=== PATIENT | male | born 1950 | race Caucasian/White ===

== ENCOUNTER 2018-09-25 16:49 | Inpatient (IN) | payer MEDICARE ==
[2018-09-25] MEDS ORDERED: ASPIRIN 81 MG PO STA (17:11)
[2018-09-25] MEDS ORDERED: HEPARIN SOD,PORK IN 0.45% NACL 25,000 UNIT in 0.45% NACL 1 250ML.BAG IV SCH (17:15)
[2018-09-25] MEDS ORDERED: HEPARIN SODIUM,PORCINE 5,000 UNIT/ML 1 ML VIAL IV ONE (17:15)
[2018-09-25] MEDS ORDERED: HEPARIN SODIUM,PORCINE 5,000 UNIT/ML 1 ML VIAL IV PRN (17:15)
--- NOTE | 2018-09-25 17:17 | ED ---
General Adult HPI - General Chief complaint: Chest Pain Stated complaint: chest & back pain Time Seen by Provider: 09/25/18 16:59 Source: patient Mode of arrival: ambulatory - History of Present Illness Initial comments: Dictation was produced using [employer] dictation software. please excuse any grammatical, word or spelling errors. Chief Complaint: 60-year-old male with past medical history of hypertension, asthma and pneumonia presents with chief complaint of chest pain History of Present Illness: 68-year-old male with past nuchal history asthma, hypertension pneumonia presents with chief complaint of chest pain. He states that it started 11:30 this morning. He describes it as a crushing chest pain that radiates to his back and down his left upper extremity. He describes it as a dull ache denies any paresthesias to the arms or legs. Patient states pain is discomfort. He had a similar episode a month ago however it resolved spontan eously. Patient currently undergoing treatment for pneumonia. Patient denies any cardiac history. The ROS documented in this emergency department record has been reviewed and confirmed by me. Those systems with pertinent positive or negative responses have been documented in the HPI. All other systems are other negative and/or noncontributory. PHYSICAL EXAM: General Impression: Alert and oriented x3, mild distress secondary to pain HEENT: Normocephalic atraumatic, extra-ocular movements intact, pupils equal and reactive to light bilaterally, mucous membranes moist. Cardiovascular: Heart regular rate and rhythm, S1&S2 audible, no murmurs, rubs or gallops Chest: Lungs clear to auscultation bilaterally, no rhonchi, no wheeze, no rales Abdomen: Bowel sounds present, abdomen soft, non-tender, non-distended, no organomegaly Musculoskeletal: Pulses present and equal in all extremities, no peripheral edema Motor: no focal deficits noted Neurological: CN II-XII grossly intact, no focal motor or sensory deficits noted Skin: Intact with no visualized rashes Psych: Normal affect and mood ED course: 68-year-old male with chief complaint of chest pain. All signs upon arrival shows blood pressure 202/122. Patient's HPI is concerning for ACS symptoms. More history was obtained from patient. He states earlier today he had episode of nausea and diaphoresis along with this chest pain. Patient's clinical symptoms concerning for myocardial infarction. EKG shows subtle ST elevations in the inferior leads. Chip Tester was activated. Patient was given aspirin and heparin bolus. Patient case was discussed with Dr. Cifuenets to be dispositioned to laborer adjustable steel joist. Pending labs. EKG is reviewed by myself. Showing no acute processes. EKG interpretation: Ventricular rate 65, normal sinus rhythm,. Interval 170, QS 140, QTc 420. No FL prolongation, no QTC prolongation, right bundle branch block pattern. ST elevations in the inferior leads. - Related Data Home Medications Medication Instructions Recorded Confirmed Albuterol Nebulized [Ventolin 2.5 mg INHALATION RT-QID PRN 01/29/14 09/25/18 Nebulized] Losartan Potassium [Cozaar] 100 mg PO DAILY 01/29/14 09/25/18 Montelukast [Singulair] 10 mg PO HS 01/29/14 09/25/18 Fluticasone/Vilanterol [Breo 1 puff INHALATION RT-DAILY 09/25/18 09/25/18 Ellipta 200-25 Mcg INH] Levofloxacin [Levaquin] 500 mg PO DAILY 09/25/18 09/25/18 predniSONE See Taper PO DAILY 09/25/18 09/25/18 Allergies Allergy/AdvReac Type Severity Reaction Status Date / Time yeast Allergy Dyspnea Uncoded 09/25/18 17:43 Review of Systems ROS Statement: Those systems with pertinent positive or pertinent negative responses have been documented in the HPI. ROS Other: All systems not noted in ROS Statement are negative. Past Medical History Past Medical History: Asthma, GERD/Reflux, Hypertension, Pneumonia Additional Past Medical History / Comment(s): KIDNEY STONES, DIVERTICULITIS. History of Any Multi-Drug Resistant Organisms: None Reported Past Surgical History: Appendectomy Past Anesthesia/Blood Transfusion Reactions: No Reported Reaction Past Psychological History: No Psychological Hx Reported Smoking Status: Never smoker Past Alcohol Use History: Rare Past Drug Use History: None Reported - Past Family History Father Family Medical History: Congestive Heart Failure ([place]), Myocardial Infarction ([place]) Additional Family Medical History / Comment(s): AT AGE 7 CHF , HAD GBS AFTER FLU SHOT Mother Family Medical History: Cancer Additional Family Medical History / Comment(s): AT AGE 65 OF [place] Course Vital Signs 09/25/18 09/25/18 09/25/18 16:56 17:20 17:50 Temperature 97.5 F L Pulse Rate 34 L 68 73 Respiratory 16 21 18 Rate Blood Pressure 202/122 188/117 196/106 O2 Sat by Pulse 100 97 100 Oximetry 09/25/18 17:57 Temperature Pulse Rate 69 Respiratory 18 Rate Blood Pressure 197/121 O2 Sat by Pulse 100 Oximetry Medical Decision Making - Lab Data Result diagrams: 09/25/18 17:25 Lab Results 09/25/18 Range/Units 17:25 WBC 18.7 H (3.8-10.6) k/uL RBC 5.46 (4.30-5.90) m/uL Hgb 15.6 (13.0-17.5) gm/dL Hct 45.6 (39.0-53.0) % MCV 83.4 (80.0-100.0) fL MCH 28.5 (25.0-35.0) pg MCHC 34.2 (31.0-37.0) g/dL RDW 14.4 (11.5-15.5) % Plt Count 307 (150-450) k/uL Neutrophils % 83 % Lymphocytes % 6 % Monocytes % 8 % Eosinophils % 1 % Basophils % 0 % Neutrophils # 15.6 H (1.3-7.7) k/uL Lymphocytes # 1.2 (1.0-4.8) k/uL Monocytes # 1.4 H (0-1.0) k/uL Eosinophils # 0.1 (0-0.7) k/uL Basophils # 0.0 (0-0.2) k/uL Disposition Clinical Impression: STEMI (ST elevation myocardial infarction) Disposition: ADMITTED IP TO THIS HOSP Condition: Critical Referrals: None,Stated [Primary Care Provider] - 1-2 days Decision Time: 18:03
[2018-09-25 17:58] LABS: Basophils % (A) 0 %; Eosinophils # (A) 0.1 k/uL (0-0.7); Eosinophils % (A) 1 %; HCT 45.6 % (39.0-53.0); HGB 15.6 gm/dL (13.0-17.5); Lymphocytes # (A) 1.2 k/uL (1.0-4.8); Lymphocytes % (A) 6 %; MCH 28.5 pg (25.0-35.0); MCHC 34.2 g/dL (31.0-37.0); MCV 83.4 fL (80.0-100.0); Monocytes # (A) 1.4 k/uL (0-1.0); Monocytes % (A) 8 %; Neutrophils # (A) 15.6 k/uL (1.3-7.7); Neutrophils % (A) 83 %; Platelet Count 307 k/uL (150-450); RBC 5.46 m/uL (4.30-5.90); RDW 14.4 % (11.5-15.5); WBC 18.7 k/uL (3.8-10.6)
[2018-09-25 18:01] LABS: ALT 33 U/L (21-72); AST 25 U/L (17-59); Alkaline Phosphatase 40 U/L (38-126); Anion Gap 20 mmol/L; Blood Urea Nitrogen 21 mg/dL (9-20); Calcium 7.6 mg/dL (8.4-10.2); Carbon Dioxide 20 mmol/L (22-30); Chloride 108 mmol/L (98-107); Glucose 122 mg/dL (74-99); Magnesium 1.4 mg/dL (1.6-2.3); Potassium 4.1 mmol/L (3.5-5.1); Sodium 148 mmol/L (137-145); Total Bilirubin 0.7 mg/dL (0.2-1.3)
[2018-09-25] MEDS ORDERED: LIDOCAINE 1% INJ 10MG/ML (20 ML MDV) ONE (18:01)
[2018-09-25] MEDS ORDERED: fentaNYL (PF) 50 MCG/ML 2 ML AMP ONE (18:02)
[2018-09-25] MEDS ORDERED: VERAPAMIL 2.5 MG/ML 2 ML AMP ONE (18:02)
[2018-09-25] MEDS ORDERED: NALOXONE 0.4 MG/ML 1 ML VIAL IV PRN (18:04)
--- NOTE | 2018-09-25 18:10 | XR ---
EXAMINATION TYPE: XR chest 1V portable DATE OF EXAM: 09/25/2018 COMPARISON: 09/20/2018 HISTORY: Chest pain TECHNIQUE: Single frontal view of the chest is obtained. FINDINGS: Heart and mediastinum are normal. There is small linear density at the left lung base. The other lung abad are clear. There is no heart failure. IMPRESSION: There is mild atelectasis left lung base that is increased compared to last exam. No hea rt failure.
[2018-09-25 18:12] LABS: Creatine Kinase MB 4.5 ng/mL (0.0-2.4)
[2018-09-25 18:15] LABS: Troponin I 0.115 ng/mL (0.000-0.034)
[2018-09-25] MEDS ORDERED: IV FLUID CONTINUATION 1,000 ML IV ONE (18:19)
[2018-09-25] MEDS ORDERED: fentaNYL (PF) 50 MCG/ML 2 ML AMP IV ONE (18:20)
[2018-09-25] MEDS ORDERED: LIDOCAINE 1% INJ 10MG/ML (20 ML MDV) SQ ONE (18:20)
[2018-09-25 18:21] LABS: D-Dimer <0.17 mg/L FEU (<0.60)
[2018-09-25] MEDS ORDERED: VERAPAMIL SYRINGE (5 MG/10 ML) IV ONE (18:23)
[2018-09-25] MEDS ORDERED: TICAGRELOR 90 MG TAB ONE (18:27)
[2018-09-25] MEDS ORDERED: TICAGRELOR 90 MG TAB PO ONE (18:29)
[2018-09-25] MEDS ORDERED: BIVALIRUDIN BOLUS 250 MG/50 ML IV ONE ×2 (18:29)
[2018-09-25] MEDS ORDERED: BIVALIRUDIN 250 MG in SODIUM CHLORIDE 0.9% 50 ML IV ONE ×2 (18:30→18:46)
[2018-09-25] MEDS ORDERED: IOPAMIDOL-370 125ML BTL INJ ONE (18:54)
[2018-09-25] MEDS ORDERED: ONDANSETRON 4 MG/2 ML VIAL ONE (18:56)
[2018-09-25] MEDS ORDERED: ONDANSETRON 4 MG/2 ML VIAL IVP ONE (18:57)
[2018-09-25] MEDS ORDERED: ATROPINE SULFATE 0.1 MG/ML 10ML SYRINGE IV ONE ×2 (19:03)
[2018-09-25 19:10] LABS: Prothrombin Time >130.0 sec (9.0-12.0)
[2018-09-25 19:11] LABS: INR >10.0 (<1.2); Partial Thromboplastin Time >200.0 sec (22.0-30.0)
[2018-09-25] MEDS ORDERED: niCARdipine Syringe (1,000 mcg/10 mL) INTRACORON ONE (19:27)
[2018-09-25] MEDS ORDERED: IOPAMIDOL-370 100ML BTL INJ ONE ×2 (19:32)
[2018-09-25] MEDS ORDERED: MAG HYDROX/AL HYDROX/SIMETH 30 ML CUP PO PRN (19:53)
[2018-09-25] MEDS ORDERED: NITROGLYCERIN SL TABS 0.4 MG TAB SUBLINGUAL PRN (19:53)
[2018-09-25] MEDS ORDERED: ZOLPIDEM 5 MG TAB PO PRN (19:53)
[2018-09-25] MEDS ORDERED: RX INFO: IV CONTRAST WAS GIVEN 1 EACH MISC MISCELLANE PRN (19:53)
[2018-09-25] MEDS ORDERED: ATROPINE SULFATE 0.1 MG/ML 10ML SYRINGE IV PRN (19:53)
[2018-09-25] MEDS ORDERED: ALBUTEROL NEBULIZED 2.5 MG/3 ML INHALATION PRN (19:54)
[2018-09-25] MEDS ORDERED: SODIUM CHLORIDE 0.9% 1,000 ML IV SCH (20:00)
[2018-09-25 20:08] LABS: Glucose,Whole Blood 160 mg/dL (75-99)
[2018-09-25] MEDS ORDERED: ONDANSETRON 4 MG/2 ML VIAL IVP PRN (21:54)
[2018-09-25] MEDS: ATORVASTATIN 80 MG TAB PO SCH (22:11)
[2018-09-25] MEDS: MONTELUKAST 10 MG TAB PO SCH (22:11)
[2018-09-25] MEDS: TICAGRELOR 90 MG TAB PO SCH (22:12)
--- NOTE | 2018-09-25 23:37 | CONS ---
CONSULTATION Mr. 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 The discomfort occurred are for the first time last week. Subsequently resolved. Early this morning he has some discomfort that has reoccurred. The discomfort radiates to the back. He came into the emergency room and because of that and after further evaluation, Cardiology consultation was initiated. The patient usually is active physically. Has no exertional chest pain. He denies any history of dyspnea on exertion. No dizziness. No palpitation. No syncope. No PND, orthopnea, or peripheral edema. He has no prior history of documented cardiac disease. He follows with Dr. Powers regarding history of bronchial asthma. His coronary risk factors remarkable for hypertension. He is a nonsmoker, nondiabetic. No history of documented hyperlipidemia. MEDICATIONS: Include prednisone, Singulair, losartan 100 mg daily, Breo Ellipta and Ventolin. REVIEW OF SYSTEMS: RESPIRATORY system: He had dyspnea on exertion, history of bronchial asthma. No recent GI bleeding. No peptic ulcer disease. system: No dysuria or hematuria. Nervous system: No stroke or seizure. PHYSICAL EXAMINATION: He is a 68-year-old male, alert, oriented, in no apparent distress. Blood pressure 197/120 with a heart rate in the 60s. HEAD: Normocephalic. Eyes sclerae anicteric. NECK: Good upstroke. No bruit. No jugular venous distention. LUNGS: Clear to auscultation. Heart: Regular rate and rhythm S1, S2. No S3. No rub or gallop appreciated. ABDOMEN: Soft, nontender. Positive bowel sounds. No megaly. EXTREMITIES: No edema. Intact distal pulses. LABORATORY STUDIES: EKG revealed a sinus mechanism with right bundle branch block and left ventricular hypertrophy with mild ST changes in the inferior leads. Chest x-ray showed no acute infiltrate. BUN and creatinine are 21 and 0.64, glucose 122, hemoglobin of 15.6. IMPRESSION: 1. Chest discomfort of unclear etiology with mild ST-segment changes with underlying right bundle branch block. 2. History of bronchial asthma. 3. Hypertension, elevated at this time. RECOMMENDATION: In view of his presentation and persistent symptoms, patient will undergo coronary angiography. The rationale behind the procedure as well risks and complication were discussed with the patient and he is in full understanding and agreement. Depending on the results of testing, further recommendation will be made. Thank you for this consult. We will follow with you. MMODL / IJN: [id number] / ROSMERY
[2018-09-25] MEDS: ACETAMINOPHEN TAB 325 MG TAB PO PRN (23:43)
--- NOTE | 2018-09-26 00:22 | CC ---
CARDIAC CATHETERIZATION REPORT INDICATIONS: Mr. Leahy is a 68-year-old male with known history of hypertension and no prior history of coronary disease who presented to the emergency room with symptoms of chest discomfort and minimal ST-segment changes inferiorly. In view of his persistent symptoms, recommendation made regarding cardiac catheterization. The procedure as well as risks and complications were discussed with the patient who is in full understanding and agreement. PROCEDURE: Patient was brought to analytical lab technician in a fasting semi-sedated state, after receiving fentanyl and Benadryl and achieving moderate conscious sedated state. Using Xylocaine anesthesia and Seldinger technique, a 6-Vietnamese sheath was introduced in the right radial artery. Selective right and left coronary angiography was performed using 5- Vietnamese 3-1/2 bend right and left Tyrel catheter. Multiple views of the coronary arteries including hemiaxial views obtained. Following that, angioplasty and stenting was performed. Following that, a 5-Vietnamese tight pigtail catheter was introduced in the left ventricle and the left ventricle end-diastolic pressure was calculated. Following that catheter and sheath were removed. Hemostasis was obtained with deployment of a TR band on the right radial artery and Angio-Seal in right femoral artery. The patient was returned to his room in stable condition. There were no immediate complications. FINDINGS: LEFT MAIN: This is a large-sized vessel bifurcating left circumflex, left anterior descending artery. Left main coronary artery as no evidence of coronary disease. LEFT ANTERIOR DESCENDING ARTERY: This is a large-sized vessel reaching toward the apex, giving rise to a moderate-sized diagonal branch. The left anterior descending artery has a 20% plaque proximally. The rest of the vessel has no high-grade stenosis next. LEFT CIRCUMFLEX: This is a large nondominant vessel giving rise to a large obtuse marginal branch distally and small obtuse marginal branch. The left circumflex first obtuse marginal branch has a 20% to 30% plaque. The rest of the vessel has no high-grade stenosis. RIGHT CORONARY ARTERY: This vessel is totally occluded proximally with no antegrade flow. COLLATERALS: There are collaterals from the left coronary system toward the right PDA. HEMODYNAMICS: There was no gradient across the aortic valve. The left ventricle end-diastolic pressure was 20 mmHg. VENTRICULOGRAM: Not performed. CONCLUSION: 1. Acutely occluded right coronary artery with small collaterals from the left system. 2. Mild disease in the LAD and the left circumflex. RECOMMENDATIONS: In view of finding of anatomy, recommendation regarding angioplasty and stenting. The procedure as well as the risks and complications were discussed with the patient who is in full understanding and agreement. MMODL / IJN: [id number] /
--- NOTE | 2018-09-26 00:22 | PTCA ---
PERCUTANEOUSTRANS CORORONARY ANGIOGRAPHY Mr. Leahy is a 68-year-old male who presented with acute coronary syndrome, underwent cardiac catheterization, was found to have totally occluded proximal right coronary artery. In view of that, recommendation was made regarding angioplasty and stenting. The procedures as well as risks and complication were discussed with the patient who is in full understanding and agreement. DESCRIPTION OF PROCEDURE: A 6-Malaysian FR4 guiding catheter was introduced in the system. After cannulating the ostium of the right coronary artery attempt to advance a 0.014 balanced medium weight J- wire was unsuccessful. The backup of the catheter was poor because of the tortuosity in the right subclavian area. At that point, a 0.014 whisper J-wire with a FineCross catheter was advanced. The total lesion was crossed and positioned distally. Following that, a 2.5 x 12 mm Trek balloon was advanced and multiple inflations maximum of 10 atmospheres were done. Following that, the balloon was removed and a 2.5 x 50 mm Trek balloon was advanced and multiple inflations were done at maximum of 10 atmospheres. Following that, a 3.5 x 18 mm Xience Martita stent was deployed, postdilated at 16 atmospheres. Following that and because of the poor backup and the inability to advance a 2nd stent, using Seldinger technique 6-Malaysian sheath was introduced in the right femoral artery and the 6-Malaysian FR4 guiding catheter was introduced in the system. After cannulating the right coronary ostium, a balanced medium weight J-wire was advanced and positioned distally. Following that, a 3.5 x 12 mm Xience Martita stent was deployed proximal to the first one. It was dilated at 16 atmospheres. Following that, the patient received intracoronary nicardipine. Following that, images were obtained repeated. Those images reveal stable successful stenting. At that point, the guiding catheter, the balloon and the guidewire were removed and a tight is a 5-Malaysian tight pigtail catheter was introduced in the left ventricle and pressures were calculated. Following the catheter and sheath were removed. Hemostasis was obtained with deployment of an TR band in the right radial artery and Angio-Seal in the right femoral artery. Of note, the patient received Angiomax per protocol as well as oral loading dose of Brilinta. He has chest discomfort resolved at the end procedure. He had episode of nausea as well as bradycardia and episode of junctional rhythm. RESULTS: Successful stenting of the proximal right coronary artery with reduction of stenosis from 100% to 0%. RECOMMENDATION: Patient be continued on aspirin, Brilinta, and statin. The importance of dual antiplatelet treatment were discussed with the patient and his family and they are in full understanding and agreement. Duration of procedure is 1 hour 22 minutes. BERYL / IGNACIO: [id number] /
[2018-09-26] MEDS ORDERED: METOPROLOL TARTRATE 50 MG TAB PO STA (01:08)
[2018-09-26] MEDS: ACETAMINOPHEN TAB 325 MG TAB PO PRN (04:25)
[2018-09-26 05:32] LABS: HCT 42.4 % (39.0-53.0); HGB 14.2 gm/dL (13.0-17.5); MCH 28.5 pg (25.0-35.0); MCHC 33.5 g/dL (31.0-37.0); MCV 84.9 fL (80.0-100.0); Mean Platelet Volume 6.4; Platelet Count 297 k/uL (150-450); RBC 4.99 m/uL (4.30-5.90); RDW 13.7 % (11.5-15.5); WBC 13.4 k/uL (3.8-10.6)
[2018-09-26 05:44] LABS: Anion Gap 10 mmol/L; Blood Urea Nitrogen 23 mg/dL (9-20); Calcium 9.2 mg/dL (8.4-10.2); Carbon Dioxide 25 mmol/L (22-30); Chloride 102 mmol/L (98-107); Cholesterol 134 mg/dL (<200); Glucose 141 mg/dL (74-99); HDL Cholesterol 55 mg/dL (40-60); LDL Cholesterol,Calculated 54 mg/dL (0-99); Magnesium 1.7 mg/dL (1.6-2.3); Potassium 4.3 mmol/L (3.5-5.1); Sodium 137 mmol/L (137-145); Triglycerides 124 mg/dL (<150)
[2018-09-26 05:46] LABS: Partial Thromboplastin Time 23.5 sec (22.0-30.0); Prothrombin Time 10.6 sec (9.0-12.0)
[2018-09-26] MEDS ORDERED: Magnesium Replacement Protocol 1 EACH MISC MISCELLANE PRN (05:56)
[2018-09-26] MEDS: SYMBICORT 160-4.5 MCG INHALER INHALATION SCH ×2 (08:00→19:30)
[2018-09-26] MEDS: MAGNESIUM SULFATE-D5W PMX 1 GM in DEXTROSE/WATER 1 100ML.BAG IVPB SCH ×2 (08:01→09:14)
[2018-09-26] MEDS ORDERED: LOSARTAN 50 MG TAB PO SCH (09:00)
[2018-09-26] MEDS ORDERED: amLODIPine 5 MG TAB PO SCH (09:00)
[2018-09-26] MEDS: TICAGRELOR 90 MG TAB PO SCH ×2 (09:15→21:31)
[2018-09-26] MEDS: METOPROLOL TARTRATE 25 MG TAB PO SCH ×2 (09:15→21:31)
[2018-09-26] MEDS: ASPIRIN 81 MG PO SCH (09:15)
--- NOTE | 2018-09-26 11:08 | HP ---
HISTORY AND PHYSICAL CHIEF COMPLAINT: Chest pain on off for about a week. HISTORY OF PRESENT ILLNESS: This gentleman had some substernal chest discomfort on and off for about a week. He saw his physician who thought he may have pneumonia. 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 He also experienced some nausea, vomiting, shortness of breath and diaphoresis and came to the emergency room where he was identified as having an MA. He was taken to the orthodontic lab technician. REVIEW OF SYSTEMS: He has had no neurologic deficits, syncope, change in vision or hearing, hemoptysis, shortness of breath, history of heart disease, murmurs, rheumatic fever, etc. He does have hypertension. He has had no abdominal pain, hematemesis, melena, hematochezia, jaundice, hematuria, frequency, urgency, renal disease, diabetes, cancer. PAST MEDICAL HISTORY, FAMILY HISTORY AND PERSONAL AND SOCIAL HISTORIES: Reveal that he is on Cozaar, Breo and Singulair. He is not allergic to any medication. He has a family history and both his dad and brother who had heart disease and . He does not smoke. He does not drink. PHYSICAL EXAMINATION: Blood pressure is 150/90 with a pulse of 86, respirations of 33, and he is afebrile. GENERAL: He appeared to be overweight, in no acute distress. Skin color is normal, skin is warm, dry. Lymph nodes not enlarged. Head, ears, eyes, nose, mouth and throat were normal. Neck veins are not distended. Thyroid is not enlarged. Chest is clear but breath sounds are somewhat diminished. Cardiac exam demonstrates sinus rhythm and no murmurs or extra sounds. The abdomen is protuberant, soft, nontender. EXTREMITIES: Normal. Neurologically, he is intact. IMPRESSION: 1. Acute STEMI. 2. History of hypertension. 3. Family history heart disease. PLAN: 1. Bed rest. 2. Cardiac cath with stenting. 3. Monitor blood pressure. 4. Lipid profile. 5. Hemoglobin A1c. 6. Talk about lifestyle changes. MMODL / IJN: [id number] /
--- NOTE | 2018-09-26 12:22 | ECHOF ---
Referral Reason:nj MEASUREMENTS -------- HEIGHT: 177.8 cm WEIGHT: 115.7 kg BP: RVIDd: 3.1 cm (< 3.3) IVSd: 1.2 cm (0.6 - 1.1) LVIDd: 3.0 cm (3.9 - 5.3) LVPWd: 1.2 cm (0.6 - 1.1) IVSs: 1.7 cm LVIDs: 2.3 cm LVPWs: 1.9 cm Ao Diam: 3.2 cm (2.0 - 3.7) AV Cusp: 2.1 cm (1.5 - 2.6) LA Diam: 2.8 cm (2.7 - 3.8) MV EXCURSION: 20.477 mm (> 18.000) MV EF SLOPE: 118 mm/s (70 - 150) EPSS: 0.5 cm MV E Blue: 0.87 m/s MV DecT: 209 ms MV A Blue: 0.82 m/s MV E/A Ratio: 1.05 AR PHT: 2062 ms RAP: 5.00 mmHg RVSP: 20.65 mmHg FINDINGS -------- Sinus rhythm. This was a technically difficult study with suboptimal views. The left ventricular size is normal. There is mild concentric left ventricular hypertrophy. Overa ll left ventricular systolic function is low-normal with, an EF between 50 - 55 %. The right ventricle is normal in size. The left atrial size is normal. The right atrial size is normal. Lumason used Trace amount of aortic regurgitation. The mitral valve leaflets are mildly thickened. There is trace mitral regurgitation. Trace tricuspid regurgitation present. The right ventricular systolic pressure, as measured by Dopp ler, is 20.65mmHg. There is no pulmonic regurgitation present. The aortic root size is normal. IVC Not well visulized. There is no pericardial effusion. CONCLUSIONS -------- 1. Sinus rhythm. 2. This was a technically difficult study with suboptimal views. 3. The left ventricular size is normal. 4. There is mild concentric left ventricular hypertrophy. 5. Overall left ventricular systolic function is low-normal with, an EF between 50 - 55 %. 6. The right ventricle is normal in size. 7. The left atrial size is normal. 8. The right atrial size is normal. 9. Lumason used 10. Trace amount of aortic regurgitation. 11. The mitral valve leaflets are mildly thickened. 12. There is trace mitral regurgitation. 13. Trace tricuspid regurgitation present. 14. The right ventricular systolic pressure, as measured by Doppler, is 20.65mmHg. 15. There is no pulmonic regurgitation present. 16. The aortic root size is normal. 17. IVC Not well visulized. 18. There is no pericardial effusion. CERAMICS TEST ENGINEER: Jessica Soliman RDCS
--- NOTE | 2018-09-26 13:34 | P.PN ---
<Roque Cageay - Last Filed: 09/26/18 13:33> Objective - Vital Signs Vital signs: Vital Signs Temp 97.6 F 09/26/18 12:00 Pulse 67 09/26/18 12:00 Resp 9 L 09/26/18 12:00 BP 142/89 09/26/18 12:00 Pulse Ox 95 09/26/18 12:00 Intake & Output 09/25/18 09/26/18 09/26/18 18:59 06:59 18:59 Intake Total 974.7 1100 450 Output Total 525 0 Balance 974.7 575 450 Weight 117.934 kg 115.7 kg Intake: IV 974.7 900 0 Sodium Chloride 0.9% 1, 900 0 000 ml @ 100 mls/hr IV . Q10H ADDY Rx#:[id number] Intake, IV Titration 200 Amount Magnesium Sulfate-D5w Pmx 200 1 gm In Dextrose/Water 1 100ml.bag @ 100 mls/hr IVPB Q1H ADDY Rx#: [id number] Oral 200 250 Output: Urine 525 0 Other: # Voids 1 - Labs CBC & Chem 7: 09/26/18 05:07 09/26/18 05:07 Labs: Abnormal Lab Results - Last 24 Hours (Table) 09/25/18 09/25/18 09/25/18 Range/Units 17:25 17:25 17:25 WBC 18.7 H (3.8-10.6) k/uL Neutrophils # 15.6 H (1.3-7.7) k/uL Monocytes # 1.4 H (0-1.0) k/uL PT (9.0-12.0) sec INR (<1.2) APTT (22.0-30.0) sec Sodium 148 H (137-145) mmol/L Chloride 108 H (98-107) mmol/L Carbon Dioxide 20 L (22-30) mmol/L BUN 21 H (9-20) mg/dL Creatinine 0.64 L (0.66-1.25) mg/dL Glucose 122 H (74-99) mg/dL POC Glucose (mg/dL) (75-99) mg/dL Calcium 7.6 L (8.4-10.2) mg/dL Magnesium 1.4 L (1.6-2.3) mg/dL CK-MB (CK-2) 4.5 H (0.0-2.4) ng/mL Troponin I 0.115 H* (0.000-0.034) ng/mL Total Protein 6.0 L (6.3-8.2) g/dL Albumin 3.0 L (3.5-5.0) g/dL 09/25/18 09/25/18 09/25/18 Range/Units 17:25 20:05 23:30 WBC (3.8-10.6) k/uL Neutrophils # (1.3-7.7) k/uL Monocytes # (0-1.0) k/uL PT >130.0 H (9.0-12.0) sec INR >10.0 H* (<1.2) APTT >200.0 H* (22.0-30.0) sec Sodium (137-145) mmol/L Chloride (98-107) mmol/L Carbon Dioxide (22-30) mmol/L BUN (9-20) mg/dL Creatinine (0.66-1.25) mg/dL Glucose (74-99) mg/dL POC Glucose (mg/dL) 160 H (75-99) mg/dL Calcium (8.4-10.2) mg/dL Magnesium (1.6-2.3) mg/dL CK-MB (CK-2) (0.0-2.4) ng/mL Troponin I 30.400 H* (0.000-0.034) ng/mL Total Protein (6.3-8.2) g/dL Albumin (3.5-5.0) g/dL 09/26/18 09/26/18 09/26/18 Range/Units 05:07 05:07 05:07 WBC 13.4 H (3.8-10.6) k/uL Neutrophils # (1.3-7.7) k/uL Monocytes # (0-1.0) k/uL PT (9.0-12.0) sec INR (<1.2) APTT (22.0-30.0) sec Sodium (137-145) mmol/L Chloride (98-107) mmol/L Carbon Dioxide (22-30) mmol/L BUN 23 H (9-20) mg/dL Creatinine (0.66-1.25) mg/dL Glucose 141 H (74-99) mg/dL POC Glucose (mg/dL) (75-99) mg/dL Calcium (8.4-10.2) mg/dL Magnesium (1.6-2.3) mg/dL CK-MB (CK-2) (0.0-2.4) ng/mL Troponin I 41.500 H* (0.000-0.034) ng/mL Total Protein (6.3-8.2) g/dL Albumin (3.5-5.0) g/dL <Ashia Bland - Last Filed: 09/26/18 14:53> Subjective This is a pleasant 68-year-old male past medical history significant for hypertension. He presented to the emergency room yesterday with symptoms of chest discomfort. He underwent cardiac catheterization with Dr. Cifuentes revealing left main with no significant disease, LAD with 20% plaque proximally, circumflex with no evidence of disease, first OM branch of the circumflex with a 2030% plaque, RCA is totally occluded proximally with no antegrade flow. He underwent successful stent placement of the RCA. Echocardiogram obtained today revealed preserved LV systolic function with EF 50-55%, mild concentric left ventricular hypertrophy noted. Currently maintained on aspirin 81 mg daily, atorvastatin 80 mg daily, losartan 50 mg daily, metoprolol 25 mg twice a day and Brilinta 90 mg 3 times a day. Blood pressure is 164/96 with a heart rate of 67 afebrile maintaining oxygen saturation on nasal cannula. Laboratory data reviewed, WBC 13.4, hemoglobin 14.2, platelets 297, sodium 137, potassium 4.3, magnesium 1.7, creatinine 0.75, peak troponin 41.5, LDL 54 and HDL 55. He is seen and examined resting comfortably in bed with family at the bedside. He denies any symptoms of chest discomfort, shortness of breath, dizziness, nausea, vomiting, palpitations or diaphoresis. He states he has been up around his room without difficulty. He denies any pain or discomfort to the right groin or right wrist puncture sites. There is no evidence of bleeding, hematoma or ecchymosis. GENERAL: Well-appearing, well-nourished and in no acute distress. NECK: Supple without JVD or thyromegaly. LUNGS: Breath sounds clear to auscultation bilaterally. Respiration equal and unlabored. No wheezes, rales or rhonchi. HEART: Regular rate and rhythm without murmurs, rubs or gallops. S1 and S2 heard. EXTREMITIES: Normal range of motion, no edema. No clubbing or cyanosis. Peripheral pulses intact. Right wrist puncture site is clean, dry and intact with strong distal pulse no evidence of bleeding, hematoma or ecchymosis. Right groin site is clean, dry and intact with no evidence of hematoma, bleeding or ecchymosis. Distal pulses are strong. ASSESSMENT Acute ST elevated myocardial infarction Hypertension Right bundle branch block Hypomagnesemia, resolved PLAN Increase losartan to 100 mg daily, give additional dose of 50 now. He has remained hemodynamically stable. May be transferred to stepdown unit. Expect possible discharge in the next 24-48 hours if he continues to remain stable. Further recommendations to follow based on clinical course. Nurse Practitioner note has been reviewed, I agree with a documented findings and plan of care. Patient was seen and examined. Objective - Vital Signs Vital signs: Vital Signs Temp 97.6 F 09/26/18 12:00 Pulse 67 09/26/18 14:00 Resp 19 09/26/18 14:00 BP 164/96 09/26/18 14:00 Pulse Ox 96 09/26/18 13:00 Intake & Output 09/25/18 09/26/18 09/26/18 18:59 06:59 18:59 Intake Total 974.7 1100 550 Output Total 525 0 Balance 974.7 575 550 Weight 117.934 kg 115.7 kg Intake: IV 974.7 900 0 Sodium Chloride 0.9% 1, 900 0 000 ml @ 100 mls/hr IV . Q10H ADDY Rx#:[id number] Intake, IV Titration 200 Amount Magnesium Sulfate-D5w Pmx 200 1 gm In Dextrose/Water 1 100ml.bag @ 100 mls/hr IVPB Q1H ADDY Rx#: [id number] Oral 200 350 Output: Urine 525 0 Other: # Voids 1 - Labs CBC & Chem 7: 09/26/18 05:07 09/26/18 05:07 Labs: Abnormal Lab Results - Last 24 Hours (Table) 09/25/18 09/25/18 09/25/18 Range/Units 17:25 17:25 17:25 WBC 18.7 H (3.8-10.6) k/uL Neutrophils # 15.6 H (1.3-7.7) k/uL Monocytes # 1.4 H (0-1.0) k/uL PT (9.0-12.0) sec INR (<1.2) APTT (22.0-30.0) sec Sodium 148 H (137-145) mmol/L Chloride 108 H (98-107) mmol/L Carbon Dioxide 20 L (22-30) mmol/L BUN 21 H (9-20) mg/dL Creatinine 0.64 L (0.66-1.25) mg/dL Glucose 122 H (74-99) mg/dL POC Glucose (mg/dL) (75-99) mg/dL Calcium 7.6 L (8.4-10.2) mg/dL Magnesium 1.4 L (1.6-2.3) mg/dL CK-MB (CK-2) 4.5 H (0.0-2.4) ng/mL Troponin I 0.115 H* (0.000-0.034) ng/mL Total Protein 6.0 L (6.3-8.2) g/dL Albumin 3.0 L (3.5-5.0) g/dL 09/25/18 09/25/18 09/25/18 Range/Units 17:25 20:05 23:30 WBC (3.8-10.6) k/uL Neutrophils # (1.3-7.7) k/uL Monocytes # (0-1.0) k/uL PT >130.0 H (9.0-12.0) sec INR >10.0 H* (<1.2) APTT >200.0 H* (22.0-30.0) sec Sodium (137-145) mmol/L Chloride (98-107) mmol/L Carbon Dioxide (22-30) mmol/L BUN (9-20) mg/dL Creatinine (0.66-1.25) mg/dL Glucose (74-99) mg/dL POC Glucose (mg/dL) 160 H (75-99) mg/dL Calcium (8.4-10.2) mg/dL Magnesium (1.6-2.3) mg/dL CK-MB (CK-2) (0.0-2.4) ng/mL Troponin I 30.400 H* (0.000-0.034) ng/mL Total Protein (6.3-8.2) g/dL Albumin (3.5-5.0) g/dL 09/26/18 09/26/18 09/26/18 Range/Units 05:07 05:07 05:07 WBC 13.4 H (3.8-10.6) k/uL Neutrophils # (1.3-7.7) k/uL Monocytes # (0-1.0) k/uL PT (9.0-12.0) sec INR (<1.2) APTT (22.0-30.0) sec Sodium (137-145) mmol/L Chloride (98-107) mmol/L Carbon Dioxide (22-30) mmol/L BUN 23 H (9-20) mg/dL Creatinine (0.66-1.25) mg/dL Glucose 141 H (74-99) mg/dL POC Glucose (mg/dL) (75-99) mg/dL Calcium (8.4-10.2) mg/dL Magnesium (1.6-2.3) mg/dL CK-MB (CK-2) (0.0-2.4) ng/mL Troponin I 41.500 H* (0.000-0.034) ng/mL Total Protein (6.3-8.2) g/dL Albumin (3.5-5.0) g/dL
[2018-09-26] MEDS ORDERED: LOSARTAN 50 MG TAB PO STA (14:51)
--- NOTE | 2018-09-26 15:50 | PN ---
PROGRESS NOTE CHIEF COMPLAINT: Acute STEMI. HISTORY OF PRESENT ILLNESS: This gentleman is doing well. He is having no chest pain, arrhythmias, etc. PHYSICAL EXAMINATION: Chest is clear. Cardiac exam is normal. Abdomen is soft, nontender. IMPRESSION: Status post acute myocardial infarction. PLAN: No change in program. His activity will be increased, and he will likely go home tomorrow. MMODL / IJN: [id number] /
[2018-09-26] MEDS: MONTELUKAST 10 MG TAB PO SCH (21:31)
[2018-09-26] MEDS: ATORVASTATIN 80 MG TAB PO SCH (21:31)
[2018-09-27 05:10] LABS: HCT 44.9 % (39.0-53.0); HGB 14.7 gm/dL (13.0-17.5); MCH 27.9 pg (25.0-35.0); MCHC 32.8 g/dL (31.0-37.0); MCV 84.9 fL (80.0-100.0); Mean Platelet Volume 6.4; Platelet Count 266 k/uL (150-450); RBC 5.29 m/uL (4.30-5.90); RDW 13.6 % (11.5-15.5)
[2018-09-27 05:20] LABS: Anion Gap 7 mmol/L; Blood Urea Nitrogen 20 mg/dL (9-20); Calcium 8.9 mg/dL (8.4-10.2); Carbon Dioxide 29 mmol/L (22-30); Chloride 101 mmol/L (98-107); Glucose 136 mg/dL (74-99); Potassium 4.2 mmol/L (3.5-5.1); Sodium 137 mmol/L (137-145)
[2018-09-27] MEDS ORDERED: LOSARTAN 50 MG TAB PO SCH (09:00)
[2018-09-27] MEDS: METOPROLOL TARTRATE 25 MG TAB PO SCH (09:08)
[2018-09-27] MEDS: ASPIRIN 81 MG PO SCH (09:08)
[2018-09-27] MEDS: TICAGRELOR 90 MG TAB PO SCH ×2 (09:08→20:45)
[2018-09-27] MEDS: SYMBICORT 160-4.5 MCG INHALER INHALATION SCH ×2 (09:35→19:29)
[2018-09-27 09:48] VITALS: BMI 37.5
--- NOTE | 2018-09-27 13:41 | DS ---
DISCHARGE SUMMARY CHIEF COMPLAINT: Chest pain. HISTORY OF PRESENT ILLNESS AND PHYSICAL EXAM: Details of this man's history and physical can be found in the initial workup. LABORATORY STUDIES: While he was in the hospital, he had laboratory studies, details of which can be found in the laboratory section of his chart. COURSE IN HOSPITAL: After admission, he was placed on bedrest, started on intravenous fluids and taken to the director of labor and delivery where he was found to have an occluded RCA. This was opened and stented and he did well thereafter. He had no other problems of chest pain, shortness of breath, arrhythmias, etc. He is doing well. It was felt that he will probably go home on the and he will follow up with Cardiology. We will see him in several days. After his hospitalization, will help him in the process of lifestyle management including aerobic exercise and losing weight. FINAL DIAGNOSES: 1. Acute ST elevation myocardial infarction. 2. Strong family history of coronary artery disease. OPERATIONS: Cardiac cath with stenting. CONSULTATIONS: Cardiology. He is improved. MMODL / GIOVANIN: [id number] /
--- NOTE | 2018-09-27 14:17 | P.PN ---
Subjective Mr. Leahy is doing well. No chest discomfort dizziness lightheadedness or palpitations. However his blood pressure was elevated last night On examination his vitals are stable blood pressure 123/84 mmHg Breath sounds are clear no rhonchi no crackles Heart sounds S1 and S2 normal no murmurs or gallops no rub Impression Acute myocardial infarction Status post cardiac stenting Uncontrolled hypertension Suggest Continue aspirin atorvastatin and Brilinta Change losartan 50 g twice daily Change metoprolol to 50 mg by mouth twice a day If his blood pressure is well controlled over the next 24 hours I will discharge him home tomorrow His 2-D echo shows a left radical ejection fraction of about 50%, lower limits of normal Objective - Vital Signs Vital signs: Vital Signs Temp 98.3 F 09/27/18 12:00 Pulse 69 09/27/18 12:00 Resp 12 09/27/18 12:00 BP 111/80 09/27/18 12:00 Pulse Ox 95 09/27/18 12:00 Intake & Output 09/26/18 09/27/18 09/27/18 18:59 06:59 18:59 Intake Total 321 956 5888 Output Total 0 550 900 Balance 950 -150 100 Weight 115.4 kg 115.4 kg Intake: IV 0 Sodium Chloride 0.9% 1, 0 000 ml @ 100 mls/hr IV . Q10H ADDY Rx#:[id number] Intake, IV Titration 200 Amount Magnesium Sulfate-D5w Pmx 200 1 gm In Dextrose/Water 1 100ml.bag @ 100 mls/hr IVPB Q1H ADDY Rx#: [id number] Oral [id number] Output: Urine 0 550 900 Other: Voiding Method Urinal # Voids 1 1 - Labs CBC & Chem 7: 09/27/18 04:41 09/27/18 04:41 Labs: Abnormal Lab Results - Last 24 Hours (Table) 09/27/18 09/27/18 Range/Units 04:41 04:41 WBC 14.0 H (3.8-10.6) k/uL Glucose 136 H (74-99) mg/dL
[2018-09-27] MEDS: ATORVASTATIN 80 MG TAB PO SCH (20:44)
[2018-09-27] MEDS: METOPROLOL TARTRATE 50 MG TAB PO SCH (20:44)
[2018-09-27] MEDS: MONTELUKAST 10 MG TAB PO SCH (20:45)
[2018-09-28 05:07] LABS: HCT 46.4 % (39.0-53.0); HGB 14.9 gm/dL (13.0-17.5); MCH 28.6 pg (25.0-35.0); MCHC 32.2 g/dL (31.0-37.0); MCV 88.9 fL (80.0-100.0); Mean Platelet Volume 6.3; Platelet Count 259 k/uL (150-450); RBC 5.22 m/uL (4.30-5.90); RDW 13.6 % (11.5-15.5); WBC 13.9 k/uL (3.8-10.6)
[2018-09-28 05:14] LABS: Anion Gap 8 mmol/L; Blood Urea Nitrogen 28 mg/dL (9-20); Calcium 8.4 mg/dL (8.4-10.2); Carbon Dioxide 24 mmol/L (22-30); Chloride 104 mmol/L (98-107); Glucose 138 mg/dL (74-99); Magnesium 1.9 mg/dL (1.6-2.3); Potassium 4.1 mmol/L (3.5-5.1); Sodium 136 mmol/L (137-145)
[2018-09-28] MEDS ORDERED: Magnesium Replacement Protocol 1 EACH MISC MISCELLANE PRN (06:47)
[2018-09-28] MEDS: MAGNESIUM SULFATE-D5W PMX 1 GM in DEXTROSE/WATER 1 100ML.BAG IVPB SCH ×2 (08:12→09:59)
[2018-09-28] MEDS: ASPIRIN 81 MG PO SCH (08:13)
[2018-09-28] MEDS: TICAGRELOR 90 MG TAB PO SCH (08:13)
[2018-09-28] MEDS: METOPROLOL TARTRATE 50 MG TAB PO SCH (08:13)
[2018-09-28] MEDS: SYMBICORT 160-4.5 MCG INHALER INHALATION SCH (08:58)
[2018-09-28] MEDS ORDERED: LOSARTAN 50 MG TAB PO SCH (09:00)
[2018-09-28] MEDS ORDERED: LOSARTAN 25 MG TAB PO SCH (12:00)
[2018-09-28 12:12] VITALS: RESP 18
[2018-09-28 16:43] VITALS: BP 115/84; PULSE 77; TEMP 98
--- NOTE | 2018-09-28 19:51 | P.PN ---
Subjective Patient is doing well. No chest discomfort or shortness of breath no dizziness or lightheadedness. Yesterday his blood pressure was well-controlled but after maximization of medications he is tolerating them well. He is asymptomatic ambulating in the room No chest discomfort On examination his blood pressure is 104/60 mmHg pulse rate in the 70s and 80s Heart sounds S1-S2 normal no murmurs or gallops. Abdomen soft nontender Extremities warm no edema Impression Acute back on fraction status post coronary stenting Patient may go home today on aspirin statins beta blockers and antihypertensive therapy and dual antiplatelet therapy for Dr. Cifuentes Objective - Vital Signs Vital signs: Vital Signs Temp 98.0 F 09/28/18 16:00 Pulse 77 09/28/18 16:00 Resp 18 09/28/18 16:00 BP 115/84 09/28/18 16:00 Pulse Ox 97 09/28/18 16:00 Intake & Output 09/28/18 09/28/18 09/29/18 06:59 18:59 06:59 Intake Total 100 1040 Balance 100 1040 Weight 115.2 kg Intake: IV 200 Magnesium Sulfate-D5w Pmx 200 1 gm In Dextrose/Water 1 100ml.bag @ 100 mls/hr IVPB Q1H ADDY Rx#: [id number] Oral 100 840 Other: Voiding Method Urinal Toilet Urinal # Voids 1 2 # Bowel Movements 1 - Labs CBC & Chem 7: 09/28/18 04:51 09/28/18 04:51 Labs: Abnormal Lab Results - Last 24 Hours (Table) 09/28/18 09/28/18 Range/Units 04:51 04:51 WBC 13.9 H (3.8-10.6) k/uL Sodium 136 L (137-145) mmol/L BUN 28 H (9-20) mg/dL Glucose 138 H (74-99) mg/dL
--- NOTE | 2018-09-29 06:55 | DS ---
DISCHARGE SUMMARY CHIEF COMPLAINT: Chest pain and acute STEMI. HISTORY OF PRESENT ILLNESS AND PHYSICAL EXAM: Details of this man's history and physical can be found in the initial workup. LABORATORY STUDIES: While he was in the hospital he had laboratory studies, details of which can be found in the laboratory section of his chart. COURSE IN THE HOSPITAL: After admission, he was placed on bedrest, started on intravenous fluids and taken to the [employer] lab[employer]. He underwent stenting of the RCA and postoperatively he did well. Initially his blood pressure was quite low, but he was asymptomatic. His Cozaar was cut from 100 to 25 mg and he is doing well with a normal blood pressure and it was felt he could go home on the . He will go home on prescribed medications, cardiac diet and light activity and he will be followed up by Cardiology as well as my office. FINAL DIAGNOSES: 1. Acute ST-elevation myocardial infarction. 2. History of hypertension. OPERATIONS: Cardiac cath with stenting. CONSULTATIONS: Cardiology He is improved. MMODL / GIOVANIN: [id number] /
== END 2018-09-28 17:31 | disposition home or self-care (01) | DRG 246 ==
LOC: EC 16:49 → 2SICU 18:04
PROVIDERS: ADMIT Family Medicine; ATTEND Family Medicine
PROC: 4A12XSH Monitoring of Cardiac Vascular Perfusion using Indocyanine Green Dye, External Approach (ICD-10-PCS; 2018-09-25)
PROC: B2111ZZ Fluoroscopy of Multiple Coronary Arteries using Low Osmolar Contrast (ICD-10-PCS; 2018-09-25)
PROC: 027035Z Dilation of Coronary Artery, One Artery with Two Drug-eluting Intraluminal Devices, Percutaneous Approach (ICD-10-PCS; principal; 2018-09-25 18:14)
PROC: 4A023N7 Measurement of Cardiac Sampling and Pressure, Left Heart, Percutaneous Approach (ICD-10-PCS; 2018-09-25 18:14)
DX: I21.3 ST elevation (STEMI) myocardial infarction of unspecified site (principal); J18.9 Pneumonia, unspecified organism; I11.9 Hypertensive heart disease without heart failure; E83.42 Hypomagnesemia; I45.10 Unspecified right bundle-branch block; I25.10 Atherosclerotic heart disease of native coronary artery without angina pectoris; J45.909 Unspecified asthma, uncomplicated; K21.9 Gastro-esophageal reflux disease without esophagitis; Z79.51 Long term (current) use of inhaled steroids; Z79.899 Other long term (current) drug therapy; Z87.442 Personal history of urinary calculi; Z87.19 Personal history of other diseases of the digestive system; Z90.49 Acquired absence of other specified parts of digestive tract; Z91.02 Food additives allergy status; Z80.8 Family history of malignant neoplasm of other organs or systems; Z82.49 Family history of ischemic heart disease and other diseases of the circulatory system
CPT/HCPCS: 36415; 71045; 80048; 80053; 80061; 82553; 83735; 83880; 84484; 85025; 85027; 85347; 85379; 85610; 85730; 93005; 93306; 93458; 94640; 96374; 99285; C1874

== ENCOUNTER → 2019-01-03 | Outpatient (CLI) | payer MEDICARE ==
[2019-01-03 11:58] LABS: African American GFR (CKD) 89.2 (60.0-200.0); Albumin 4.2 g/dL (3.80-4.90); Albumin/Globulin Ratio 2.21 (1.60-3.17); Anion Gap 8.7 mmol/L (4.00-12.00); Carbon Dioxide 25.3 mmol/L (21.6-31.8); Globulin 1.9 g/dL (1.6-3.3); LDL Cholesterol,Calculated 52.8 mg/dL (0.0-131.0); Potassium 4.5 mmol/L (3.5-5.5); Total Bilirubin 0.6 mg/dL (0.3-1.2); Total Protein 6.1 g/dL (6.2-8.2); VLDL Calculation 13.2 mg/dL (5.00-40.00)
== END | disposition home or self-care (01) ==
LOC: LABWHC1 07:19
PROVIDERS: ATTEND Internal Medicine Interventional Cardiology
DX: E78.2 Mixed hyperlipidemia (principal)
CPT/HCPCS: 36415; 80053; 80061

== ENCOUNTER → 2019-07-09 | Outpatient (CLI) | payer MEDICARE ==
[2019-07-09 16:04] LABS: Chol/HDL Ratio 2.78; LDL Cholesterol,Calculated 65.8 mg/dL (0.0-131.0); VLDL Calculation 16.2 mg/dL (5.00-40.00)
== END | disposition home or self-care (01) ==
LOC: LABWHC1 08:54
PROVIDERS: ATTEND Nurse Practitioner Adult Health
DX: E78.2 Mixed hyperlipidemia (principal)
CPT/HCPCS: 36415; 80061

== ENCOUNTER → 2020-11-10 | Outpatient (CLI) | payer MEDICARE ==
[2020-11-10 14:37] LABS: Albumin 4.3 g/dL (3.80-4.90); Albumin/Globulin Ratio 2.05 (1.60-3.17); Anion Gap 5.7 mmol/L (4.00-12.00); Carbon Dioxide 28.3 mmol/L (21.6-31.8); Chol/HDL Ratio 2.79; Globulin 2.1 g/dL (1.6-3.3); LDL Cholesterol,Calculated 63.2 mg/dL (0.0-131.0); Non-African American GFR(CKD) 75.9 (60.0-200.0); Potassium 4.4 mmol/L (3.5-5.5); Total Bilirubin 0.5 mg/dL (0.2-1.2); Total Protein 6.4 g/dL (6.2-8.2); VLDL Calculation 13.8 mg/dL (5.00-40.00)
== END | disposition home or self-care (01) ==
LOC: LABWHC1 09:05
PROVIDERS: ATTEND Internal Medicine Interventional Cardiology
DX: E78.2 Mixed hyperlipidemia (principal)
CPT/HCPCS: 36415; 80053; 80061

== ENCOUNTER → 2021-06-04 | Outpatient (CLI) | payer MEDICARE ==
[2021-06-04 15:54] LABS: ALT 21 U/L (10-49); AST 22 U/L (14-35); Chol/HDL Ratio 2.53 Ratio; LDL Cholesterol,Calculated 68.3 mg/dL (0.0-131.0); VLDL Calculation 12.06 mg/dL (5.00-40.00)
== END | disposition home or self-care (01) ==
LOC: LABWHC1 09:25
PROVIDERS: ATTEND Nurse Practitioner Adult Health
DX: E78.2 Mixed hyperlipidemia (principal)
CPT/HCPCS: 36415; 80061; 84450; 84460

== ENCOUNTER → 2022-01-25 | Outpatient (CLI) | payer MEDICARE ==
[2022-01-25 14:42] LABS: ALT 20 U/L (10-49); AST 28 U/L (14-35); African American GFR (CKD) 99.2 (60.0-200.0); Albumin 4.1 g/dL (3.8-4.9); Albumin/Globulin Ratio 1.52 (1.60-3.17); Alkaline Phosphatase 47 U/L (41-126); BUN/Creat Ratio 18.22 Ratio (12.00-20.00); Blood Urea Nitrogen 16.4 mg/dL (9.0-27.0); Calcium 9.1 mg/dL (8.7-10.3); Carbon Dioxide 25.4 mmol/L (20.0-27.5); Chloride 104 mmol/L (96-109); Chol/HDL Ratio 4.42 Ratio; Globulin 2.7 g/dL (1.6-3.3); Glucose 128 mg/dL (70-110); LDL Cholesterol,Calculated 113.2 mg/dL (0.0-131.0); Non-African American GFR(CKD) 85.6 (60.0-200.0); Potassium 4.5 mmol/L (3.5-5.5); Sodium 139 mmol/L (135-145); Total Protein 6.8 g/dL (6.2-8.2)
== END | disposition home or self-care (01) ==
LOC: LABWHC1 08:19
PROVIDERS: ATTEND Internal Medicine Interventional Cardiology
DX: E78.2 Mixed hyperlipidemia (principal)
CPT/HCPCS: 36415; 80053; 80061